=== PATIENT | male | born 1935 | race Caucasian/White ===

== ENCOUNTER 2018-12-12 09:25 | Observation (INO) | payer MEDICARE, BC ==
[2018-12-12] MEDS ORDERED: Sodium Chloride 0.9% 10 ML Syringe FLUSH PRN ×2 (09:35→11:02)
[2018-12-12] MEDS ORDERED: Aspirin 81 MG Tab.Chew PO ONE (09:55)
--- NOTE | 2018-12-12 10:11 | EDM.PDOC ---
ED HPI GENERAL MEDICAL PROBLEM - General Chief Complaint: Cardiovascular Problem Stated Complaint: Chest pain Time Seen by Provider: 12/12/18 09:56 Source of Information: Reports: Patient History Limitations: Reports: No Limitations - History of Present Illness INITIAL COMMENTS - FREE TEXT/NARRATIVE: 83 YO WM presents to ER complaining of chest pain which began 4 days ago. Pt reports pain woke him from sleep. Pt reports associated palpitations and lightheadedness. Pt woke this am with belching and chest pain prompting ER evaluation. Pt reports his pain has been constant and rates it between 2-4/10 in severity. Pt with some mild shortness of breath and fatigue. Pt denies any fever/chills, no nausea/vomiting. Onset Date: 12/09/18 Duration: Day(s): (4) Location: Reports: Chest Quality: Reports: Pressure Severity: Mild Improves with: Reports: None Worsens with: Reports: None Associated Symptoms: Reports: Chest Pain, Diaphoresis, Shortness of Breath, Weakness. Denies: Cough, Fever/Chills, Nausea/Vomiting, Syncope chest Pain Score (Numeric/FACES): 4 - Related Data Allergies Allergy/AdvReac Type Severity Reaction Status Date / Time No Known Allergies Allergy Verified 12/12/18 09:44 Home Meds: Home Meds Finasteride 5 mg PO DAILY 12/12/18 [History] Metoprolol Succinate/HCTZ [Metoprolol ER-Hctz 50-12.5 mg] 50 mg PO DAILY [History] Naproxen 500 mg PO DAILY 12/12/18 [History] Pantoprazole [ProTONIX] 20 mg PO DAILY 12/12/18 [History] Tamsulosin [Tamsulosin 24 Hr] 0.4 mg PO DAILY 12/12/18 [History] Terazosin [Hytrin] 2 mg PO DAILY 12/12/18 [History] amLODIPine [Norvasc] 5 mg PO DAILY 12/12/18 [History] ED ROS GENERAL - Review of Systems Review Of Systems: See Below Constitutional: Reports: No Symptoms HEENT: Reports: No Symptoms Respiratory: Reports: Shortness of Breath Cardiovascular: Reports: Chest Pain, Lightheadedness, Palpitations Endocrine: Reports: No Symptoms GI/Abdominal: Reports: No Symptoms : Reports: No Symptoms Musculoskeletal: Reports: No Symptoms Skin: Reports: No Symptoms Neurological: Reports: No Symptoms Psychiatric: Reports: No Symptoms Hematologic/Lymphatic: Reports: No Symptoms Immunologic: Reports: No Symptoms ED EXAM, GENERAL - Physical Exam Exam: See Below Exam Limited By: No Limitations General Appearance: Alert, WD/WN, No Apparent Distress Nose: Normal Inspection, Normal Mucosa, No Blood Throat/Mouth: Normal Inspection, Normal Lips, Normal Teeth, Normal Gums, Normal Oropharynx, Normal Voice, No Airway Compromise Head: Atraumatic, Normocephalic Neck: Normal Inspection, Supple, Non-Tender, Full Range of Motion Respiratory/Chest: No Respiratory Distress, Lungs Clear, Normal Breath Sounds, No Accessory Muscle Use, Chest Non-Tender Cardiovascular: Normal Peripheral Pulses, Regular Rate, Rhythm, No Edema, No Gallop, No JVD, No Murmur, No Rub GI/Abdominal: Normal Bowel Sounds, Soft, Non-Tender, No Organomegaly, No Distention, No Abnormal Bruit, No Mass Back Exam: Normal Inspection, Full Range of Motion, NT Extremities: Normal Inspection, Normal Range of Motion, Non-Tender, Normal Capillary Refill, No Pedal Edema Neurological: Alert, Oriented, CN II-XII Intact, Normal Cognition, Normal Gait, Normal Reflexes, No Motor/Sensory Deficits Psychiatric: Normal Affect, Normal Mood Skin Exam: Warm, Dry, Intact, Normal Color, No Rash Lymphatic: No Adenopathy EKG INTERPRETATION EKG Date: 12/12/18 Time: 09:52 Rhythm: NSR Rate (Beats/Min): 70 [place]: Normal P-Wave: Present QRS: Normal ST-T: Normal QT: Normal Comparison: NA - No Prior EKG Course - Vital Signs Last Recorded V/S: Last Vital Signs Temp 36.7 C 12/12/18 09:36 Pulse 76 12/12/18 09:36 Resp 16 12/12/18 09:36 BP 162/61 H 12/12/18 09:36 Pulse Ox 94 L 12/12/18 09:36 - Orders/Labs/Meds Orders: Active Orders 24 hr Category Date Time Status EKG Documentation Completion [RC] ASDIRECTED Care 12/12/18 09:35 Active Peripheral IV Care [RC] . DIRECTED Care 12/12/18 09:35 Active B-TYPE NATRIURETIC PEPTIDE,BNP [CHEM] Stat Lab 12/12/18 09:55 Ordered CK W CKMB [CHEM] Stat Lab 12/12/18 09:55 Ordered COMPREHENSIVE METABOLIC PN,CMP [CHEM] Stat Lab 12/12/18 09:55 Ordered INR,PT,PROTHROMBIN TIME [COAG] Stat Lab 12/12/18 09:55 Ordered PTT,PARTIAL THROMBOPLSTIN TIME [COAG] Stat Lab 12/12/18 09:55 Ordered TROPONIN I [CHEM] Stat Lab 12/12/18 09:55 Ordered Sodium Chloride 0.9% [Saline Flush] Med 12/12/18 09:35 Active 10 ml FLUSH Q8HR PRN Peripheral IV Insertion Adult [OM.PC] Routine Oth 12/12/18 09:35 Ordered Medication Orders Sodium Chloride (Saline Flush) 10 ml FLUSH Q8HR PRN PRN Reason: keep vein open Last Admin: 12/12/18 10:07 Dose: 10 ml Labs: Laboratory Tests 12/12/18 12/12/18 Range/Units 10:05 10:05 WBC 6.59 (5.00-10.00) 10^3/uL RBC 4.57 (4.50-6.00) 10^6/uL Hgb 13.8 (13.0-17.0) g/dL Hct 39.5 L (40.0-52.0) % MCV 86.4 (82.0-92.0) fL MCH 30.2 (27.0-31.0) pg MCHC 34.9 (32.0-36.0) g/dL RDW 12.2 (11.5-14.5) % Plt Count 194 (150-400) 10^3/uL MPV 9.1 (7.4-10.4) fL Immature Gran % (Auto) 0.8 (0.0-5.0) % Neut % (Auto) 60.3 (50.0-70.0) % Lymph % (Auto) 25.8 (20.0-40.0) % [place] % (Auto) 8.5 H (2.0-8.0) % Eos % (Auto) 4.1 H (1.0-3.0) % Baso % (Auto) 0.5 (0.0-1.0) % Immature Gran # (Auto) 0.05 (0.00-0.50) 10^3/uL Neut # (Auto) 3.98 (2.50-7.00) 10^3/uL Lymph # (Auto) 1.70 (1.00-4.00) 10^3/uL [place] # (Auto) 0.56 (0.10-0.80) 10^3/uL Eos # (Auto) 0.27 (0.10-0.30) 10^3/uL Baso # (Auto) 0.03 (0.00-0.10) 10^3/uL Sodium 148 H (136-145) mmol/L Potassium 3.7 (3.3-5.3) mmol/L Chloride 103 (98-115) mmol/L Carbon Dioxide 27.5 (21.0-32.0) mmol/L Anion Gap 21.2 H (5-15) mmol/L BUN 17 (6-25) mg/dL Creatinine 0.88 (0.51-1.17) mg/dL Est Cr Clr Drug Dosing 64.72 mL/min Estimated GFR (MDRD) > 60 mL/min Glucose 113 H (75 - 99) mg/dL Calcium 8.9 (8.7-10.3) mg/dL Total Bilirubin 0.4 (0.2-1.0) mg/dL AST 14 L (15-37) U/L ALT 22 (12-78) U/L Alkaline Phosphatase 96 (46-116) IU/L Creatine Kinase 57 (26-276) U/L CK-MB (CK-2) 0.60 (0.00-4.30) ng/mL Troponin I < 0.04 (0.00-0.070) ng/mL Total Protein 7.3 (6.4-8.2) g/dL Albumin 3.62 (3.00-4.80) g/dL Meds: Medications Generic Name Dose Route Start Last Admin Trade Name Freq PRN Reason Stop Dose Admin Sodium Chloride 10 ml 12/12/18 09:35 12/12/18 10:07 Saline Flush FLUSH 10 ml Q8HR PRN Administration keep vein open Discontinued Medications Generic Name Dose Route Start Last Admin Trade Name Freq PRN Reason Stop Dose Admin Aspirin 324 mg 12/12/18 09:55 12/12/18 10:08 Aspirin PO 12/12/18 09:56 324 mg ONETIME ONE Administration - Radiology Interpretation Free Text/Narrative:: CXR- NAD Departure - Departure Time of Disposition: 11:01 Disposition: Refer to Observation Condition: Fair Clinical Impression: Palpitations Chest pain Qualifiers: Chest pain type: unspecified Qualified Code(s): R07.9 - Chest pain, unspecified Referrals: PCP,Not In Area [Primary Care Provider] - Forms: ED Department Discharge - My Orders Last 24 Hours: My Active Orders 12/12/18 09:35 EKG Documentation Completion [RC] ASDIRECTED Peripheral IV Care [RC] . DIRECTED Sodium Chloride 0.9% [Saline Flush] 10 ml FLUSH Q8HR PRN Peripheral IV Insertion Adult [OM.PC] Routine 12/12/18 09:55 B-TYPE NATRIURETIC PEPTIDE,BNP [CHEM] Stat CK W CKMB [CHEM] Stat COMPREHENSIVE METABOLIC PN,CMP [CHEM] Stat INR,PT,PROTHROMBIN TIME [COAG] Stat PTT,PARTIAL THROMBOPLSTIN TIME [COAG] Stat TROPONIN I [CHEM] Stat - Assessment/Plan Last 24 Hours: My Active Orders 12/12/18 09:35 EKG Documentation Completion [RC] ASDIRECTED Peripheral IV Care [RC] . DIRECTED Sodium Chloride 0.9% [Saline Flush] 10 ml FLUSH Q8HR PRN Peripheral IV Insertion Adult [OM.PC] Routine 12/12/18 09:55 B-TYPE NATRIURETIC PEPTIDE,BNP [CHEM] Stat CK W CKMB [CHEM] Stat COMPREHENSIVE METABOLIC PN,CMP [CHEM] Stat INR,PT,PROTHROMBIN TIME [COAG] Stat PTT,PARTIAL THROMBOPLSTIN TIME [COAG] Stat TROPONIN I [CHEM] Stat Assessment:: 1. chest pain 2. palpitations Plan: 1. 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 trop I Q6 x 3 4. supportive care
--- NOTE | 2018-12-12 10:32 | CR ---
[id number] RAD/RAD Chest PA And Lateral EXAM: RAD Chest PA And Lateral INDICATION: CHEST PAIN. COMPARISON: None. DISCUSSION: Cardiomediastinal silhouette is normal in size and contour. No infiltrate, effusion, pneumothorax, or edema. IMPRESSION: Negative examination of the chest. Francis Sanchez MD 12/12/18 1030 Thank you for allowing us to participate in the care of your patient.
[2018-12-12 10:45] LABS: ANION GAP 21.2 mmol/L (5-15); CHLORIDE,CL 103 mmol/L (98-115); SODIUM,NA 148 mmol/L (136-145)
[2018-12-12] MEDS ORDERED: DIBUCAINE TP SCH (17:00)
[2018-12-12] MEDS ORDERED: EPINEPHrine 1:10,000 1 MG/10 ML Syringe IVPUSH PRN (20:21)
[2018-12-12] MEDS ORDERED: Nitroglycerin 0.4 MG Tab.SL SL PRN (20:21)
[2018-12-12] MEDS ORDERED: Atropine 0.1 MG/ML 10 ML Syringe IVPUSH PRN (20:21)
[2018-12-12] MEDS ORDERED: Lidocaine 2% 100 MG/5 ML Syringe IVPUSH PRN (20:21)
[2018-12-12] MEDS ORDERED: HYDROCORTISONE ACETATE 30 MG RC SCH (21:00)
[2018-12-13] MEDS: Pantoprazole 40 MG Tab.CR PO SCH ×2 (07:51→07:54)
[2018-12-13] MEDS ORDERED: Metoprolol Succinate 50 MG Tab.ER PO SCH (09:00)
[2018-12-13] MEDS ORDERED: Psyllium Husk Powder Sugar Free 5.85 GM Packet PO SCH (09:00)
[2018-12-13] MEDS ORDERED: Terazosin 1 MG Cap PO SCH (09:00)
[2018-12-13] MEDS ORDERED: Tamsulosin 0.4 MG Cap.ER PO SCH (09:00)
[2018-12-13] MEDS ORDERED: amLODIPine 5 MG Tab PO SCH (09:00)
[2018-12-13] MEDS ORDERED: Finasteride 5 MG Tab PO SCH (09:00)
--- NOTE | 2018-12-13 09:39 | PCM.DCSUM1 ---
Discharge Summary - Hospital Course Free Text/Narrative:: Asael is being discharged from an observation stay from 12/12/18 - 12/13/18. He was admitted with a 4 day hx of chest pain. His also states he was having a low grade fever and a "rattle" in his chest. He had been exposed to bronchitis. He also is complaining of left sided maxillary sinus pressure and left eye tearing as as post-nasal drip. He has not been taking anything for this. He tried Coricidan in the past and did not like how it made him feel and with his HTN he doesn't know what he can take. He also notes that he has had episodes of "fluttering" of his heart and then he feels weak when this happens. While here he had no problems on telemetry. Troponin was negative x 4 and EKG was NSR. He does not have nitroglycerin at home and so he will be discharged with that. I will also send through Augmentin for his sinusitis and possible bronchitis. He has taken this before without problems. I recommend with his cardiac hx of stenting x 3 that he have a cardiolyte stress test. They will check their schedule to see if it works to do it here or if they will follow-up with his PCP in [place]. I do recommend follow-up with his PCP to discuss his palpitations and possibly getting set up with a ZioPatch to look for rhythm abnormalities. Discharge Diagnosis: Chest pain, r/o cardiac, negative work-up. --Script for nitroglycerin will be sent to the [facility] in [place]. --Schedule outpatient cardiolyte stress cirilo. --Follow-up with PCP to consider wearing Ziopatch. Acute sinusitis. --Start Augmentin 1 tab PO BID x 10 days. Will be sent through clinic chart to the [facility] pharmacy in [place]. Secondary: HTN --Continue home meds at current doses. BPH --Continue home meds at current doses. Acid Reflux --Continue home meds at current doses. Diagnosis: Stroke: No Modified [place] Scale: No Signif.Disability Despite Sympt.Able to Carry Out Usual Act./Duties Modified Lizy Scale Score: 1 - Discharge Data Discharge Date: 12/13/18 Discharge Disposition: Home, Self-Care 01 Condition: Good - Discharge Diagnosis/Problem(s) (1) Sinusitis SNOMED Code(s): 59461150 ICD Code: J32.9 - CHRONIC SINUSITIS, UNSPECIFIED Status: Acute Current Visit: Yes (2) Hypertension SNOMED Code(s): 07267096 ICD Code: I10 - ESSENTIAL (PRIMARY) HYPERTENSION Status: Acute Current Visit: Yes (3) BPH (benign prostatic hyperplasia) SNOMED Code(s): 169046532 ICD Code: N40.0 - BENIGN PROSTATIC HYPERPLASIA WITHOUT LOWER URINRY TRACT SYMP Status: Acute Current Visit: Yes (4) Chest pain SNOMED Code(s): 78301405 ICD Code: R07.9 - CHEST PAIN, UNSPECIFIED Status: Acute Current Visit: Yes Qualifiers: Chest pain type: unspecified Qualified Code(s): R07.9 - Chest pain, unspecified (5) Palpitations SNOMED Code(s): 41851281 ICD Code: R00.2 - PALPITATIONS Status: Acute Current Visit: Yes - Patient Summary/Data Recommended Follow-up Testing/Procedures: Cardiolyte Stress Test - Patient Instructions Diet: Heart Healthy Diet Activity: As Tolerated - Discharge Plan *PRESCRIPTION DRUG MONITORING PROGRAM REVIEWED*: Not Applicable *COPY OF PRESCRIPTION DRUG MONITORING REPORT IN PATIENT MAGUI: Not Applicable Home Medications: Home Meds Finasteride 5 mg PO DAILY 12/12/18 [History] Metoprolol Succinate 50 mg PO DAILY 12/12/18 [History] Naproxen 500 mg PO DAILY 12/12/18 [History] Pantoprazole [ProTONIX] 40 mg PO ACBREAKFAST 12/12/18 [History] Psyllium Husk/Aspartame [Metamucil Fiber Singles Packet] 3.4 gm PO DAILY [History] Tamsulosin HCl [Flomax] 0.4 mg PO DAILY 12/12/18 [History] Terazosin [Hytrin] 2 mg PO DAILY 12/12/18 [History] amLODIPine Besylate [Amlodipine Besylate] 10 mg PO DAILY 12/12/18 [History] Nitroglycerin [Nitrostat] 0.4 mg SL ASDIRECTED PRN tab.sl 12/13/18 [Rx] Forms: ED Department Discharge Referrals: PCP,Not In Area [Primary Care Provider] - - Discharge Summary/Plan Comment DC Time >30 min.: Yes Discharge Summary/Plan Comment: 35 minute spent on discharge. - General Info Date of Service: 12/13/18 Admission Dx/Problem (Free Text: Chest pain. - Review of Systems Systems Review Comment: Left sided maxillary sinus pressure with left eye tearing. "Rattle" in the chest occasionally. Low grade fevers (99.5 at home). All other systems are negative. - Patient Data Vitals - Most Recent: Last Vital Signs Temp 98.5 F 12/13/18 07:00 Pulse 66 12/13/18 07:00 Resp 20 12/13/18 07:00 BP 168/90 H 12/13/18 07:00 Pulse Ox 94 L 12/13/18 07:00 Weight - Most Recent: 222 lb I&O - Last 24 hours: Intake & Output 12/12/18 12/13/18 12/13/18 22:59 06:59 14:59 Intake Total 300 200 Balance 300 200 Lab Results - Last 24 hrs: Laboratory Results - last 24 hr 12/12/18 12/12/18 12/12/18 Range/Units 10:00 10:05 10:05 WBC 6.59 (5.00-10.00) 10^3/uL RBC 4.57 (4.50-6.00) 10^6/uL Hgb 13.8 (13.0-17.0) g/dL Hct 39.5 L (40.0-52.0) % MCV 86.4 (82.0-92.0) fL MCH 30.2 (27.0-31.0) pg MCHC 34.9 (32.0-36.0) g/dL RDW 12.2 (11.5-14.5) % Plt Count 194 (150-400) 10^3/uL MPV 9.1 (7.4-10.4) fL Immature Gran % (Auto) 0.8 (0.0-5.0) % Neut % (Auto) 60.3 (50.0-70.0) % Lymph % (Auto) 25.8 (20.0-40.0) % [place] % (Auto) 8.5 H (2.0-8.0) % Eos % (Auto) 4.1 H (1.0-3.0) % Baso % (Auto) 0.5 (0.0-1.0) % Immature Gran # (Auto) 0.05 (0.00-0.50) 10^3/uL Neut # (Auto) 3.98 (2.50-7.00) 10^3/uL Lymph # (Auto) 1.70 (1.00-4.00) 10^3/uL [place] # (Auto) 0.56 (0.10-0.80) 10^3/uL Eos # (Auto) 0.27 (0.10-0.30) 10^3/uL Baso # (Auto) 0.03 (0.00-0.10) 10^3/uL PT 9.3 (8.9-11.4) SEC INR 0.9 (0.9-1.1) APTT 23.6 (20.8-31.2) SEC Sodium 148 H (136-145) mmol/L Potassium 3.7 (3.3-5.3) mmol/L Chloride 103 (98-115) mmol/L Carbon Dioxide 27.5 (21.0-32.0) mmol/L Anion Gap 21.2 H (5-15) mmol/L BUN 17 (6-25) mg/dL Creatinine 0.88 (0.51-1.17) mg/dL Est Cr Clr Drug Dosing 64.72 mL/min Estimated GFR (MDRD) > 60 mL/min Glucose 113 H (75 - 99) mg/dL Calcium 8.9 (8.7-10.3) mg/dL Total Bilirubin 0.4 (0.2-1.0) mg/dL AST 14 L (15-37) U/L ALT 22 (12-78) U/L Alkaline Phosphatase 96 (46-116) IU/L Creatine Kinase 57 (26-276) U/L CK-MB (CK-2) 0.60 (0.00-4.30) ng/mL Troponin I < 0.04 (0.00-0.070) ng/mL B-Natriuretic Peptide 32 (0-100) pg/mL Total Protein 7.3 (6.4-8.2) g/dL Albumin 3.62 (3.00-4.80) g/dL 12/12/18 12/12/18 12/13/18 Range/Units 16:15 22:03 07:05 WBC (5.00-10.00) 10^3/uL RBC (4.50-6.00) 10^6/uL Hgb (13.0-17.0) g/dL Hct (40.0-52.0) % MCV (82.0-92.0) fL MCH (27.0-31.0) pg MCHC (32.0-36.0) g/dL RDW (11.5-14.5) % Plt Count (150-400) 10^3/uL MPV (7.4-10.4) fL Immature Gran % (Auto) (0.0-5.0) % Neut % (Auto) (50.0-70.0) % Lymph % (Auto) (20.0-40.0) % [place] % (Auto) (2.0-8.0) % Eos % (Auto) (1.0-3.0) % Baso % (Auto) (0.0-1.0) % Immature Gran # (Auto) (0.00-0.50) 10^3/uL Neut # (Auto) (2.50-7.00) 10^3/uL Lymph # (Auto) (1.00-4.00) 10^3/uL [place] # (Auto) (0.10-0.80) 10^3/uL Eos # (Auto) (0.10-0.30) 10^3/uL Baso # (Auto) (0.00-0.10) 10^3/uL PT (8.9-11.4) SEC INR (0.9-1.1) APTT (20.8-31.2) SEC Sodium (136-145) mmol/L Potassium (3.3-5.3) mmol/L Chloride (98-115) mmol/L Carbon Dioxide (21.0-32.0) mmol/L Anion Gap (5-15) mmol/L BUN (6-25) mg/dL Creatinine (0.51-1.17) mg/dL Est Cr Clr Drug Dosing mL/min Estimated GFR (MDRD) mL/min Glucose (75 - 99) mg/dL Calcium (8.7-10.3) mg/dL Total Bilirubin (0.2-1.0) mg/dL AST (15-37) U/L ALT (12-78) U/L Alkaline Phosphatase (46-116) IU/L Creatine Kinase (26-276) U/L CK-MB (CK-2) (0.00-4.30) ng/mL Troponin I < 0.04 < 0.04 < 0.04 (0.00-0.070) ng/mL B-Natriuretic Peptide (0-100) pg/mL Total Protein (6.4-8.2) g/dL Albumin (3.00-4.80) g/dL PEDRO Results - Last 24 hrs: Microbiology 12/12/18 19:45 Influenza Type A Antigen Screen - Final Nasopharyngeal Swab NEGATIVE INFLUENZA A VIRUS AG Influenza Type B Antigen Screen - Final NEGATIVE INFLUENZA B VIRUS AG Med Orders - Current: Current Medications Amlodipine Besylate (Norvasc) 10 mg PO DAILY [facility] Last Admin: 12/13/18 09:04 Dose: Not Given Atropine Sulfate (Atropine 0.1 Mg/Ml) 0 mg IVPUSH ASDIRECTED PRN PRN Reason: Heart Epinephrine HCl (Epinephrine 1:10,000) 1 mg IVPUSH ASDIRECTED PRN PRN Reason: Heart Finasteride (Proscar) 5 mg PO DAILY [facility] Last Admin: 12/13/18 09:05 Dose: Not Given Lidocaine HCl (Xylocaine 2%) 0 mg IVPUSH ASDIRECTED PRN PRN Reason: Heart Metoprolol Succinate (Toprol Xl) 50 mg PO DAILY [facility] Last Admin: 12/13/18 09:05 Dose: Not Given Naproxen (Naproxen Sodium) 440 mg PO DAILY [facility] Last Admin: 12/13/18 09:04 Dose: Not Given Nitroglycerin (Nitrostat) 0.4 mg SL ASDIRECTED PRN PRN Reason: Heart Non-Formulary Medication (Dibucaine [Nupercainal 1% Oint]) 30 gm TP QID [facility] Non-Formulary Medication (Hydrocortisone Acetate [Hydrocortisone Acetate]) 30 mg RC BID [facility] Pantoprazole Sodium (Protonix) 40 mg PO ACBREAKFAST [facility] Last Admin: 12/13/18 07:54 Dose: Not Given Psyllium Husk (Metamucil Sugar Free) 1 pkt PO DAILY [facility] Last Admin: 12/13/18 09:04 Dose: Not Given Sodium Chloride (Saline Flush) 10 ml FLUSH Q8HR PRN PRN Reason: keep vein open Tamsulosin HCl (Flomax) 0.4 mg PO DAILY [facility] Last Admin: 12/13/18 09:04 Dose: Not Given Terazosin HCl (Hytrin) 2 mg PO DAILY [facility] Last Admin: 12/13/18 09:04 Dose: Not Given Discontinued Medications Aspirin (Aspirin) 324 mg PO ONETIME ONE Stop: 12/12/18 09:56 Last Admin: 12/12/18 10:08 Dose: 324 mg Sodium Chloride (Saline Flush) 10 ml FLUSH Q8HR PRN PRN Reason: keep vein open Last Admin: 12/12/18 10:07 Dose: 10 ml - Exam General: Reports: Alert, Oriented, Cooperative, No Acute Distress HEENT: Reports: Other (Tenderness with palpation over the left maxillary sinus.) Neck: Reports: Supple Lungs: Reports: Clear to Auscultation, Normal Respiratory Effort Cardiovascular: Reports: Regular Rate, Regular Rhythm, No Murmurs GI/Abdominal Exam: Normal Bowel Sounds Extremities: Normal Inspection, No Pedal Edema Skin: Reports: Warm, Dry, Intact
== END 2018-12-13 10:40 | disposition home or self-care (01) ==
LOC: KA.ED 09:25 → KA.MS 11:02 → UNDODISOB 11:50
PROVIDERS: ADMIT Physician Assistant Medical; ATTEND Internal Medicine
DX: R07.89 Other chest pain (principal); R00.2 Palpitations; J01.90 Acute sinusitis, unspecified; I10 Essential (primary) hypertension; N40.0 Benign prostatic hyperplasia without lower urinary tract symptoms; K21.9 Gastro-esophageal reflux disease without esophagitis; Z95.5 Presence of coronary angioplasty implant and graft; Z79.1 Long term (current) use of non-steroidal anti-inflammatories (NSAID); Z79.899 Other long term (current) drug therapy
CPT/HCPCS: 36415; 71046; 80053; 82550; 82553; 83880; 84484; 85025; 85610; 85730; 87804; 93005; 99285; A9270-GY; G0378

== ENCOUNTER 2023-01-29 01:27 | Emergency (ER) | payer MEDICARE, BC ==
[2023-01-29] MEDS: Ketorolac 30 MG/ML SDV IVPUSH ONE (02:16)
[2023-01-29] MEDS: LORazepam 2 MG/ML SDV IVPUSH ONE (02:17)
[2023-01-29] MEDS: Sodium Chloride 0.9% 10 ML Syringe FLUSH PRN (02:23)
[2023-01-29] MEDS: Acetaminophen/HYDROcodone 325-5 MG Tab PO ONE (02:43)
== END 2023-01-29 03:30 | disposition home or self-care (01) ==
LOC: KA.ED 01:27
DX: M54.41 Lumbago with sciatica, right side (principal); I10 Essential (primary) hypertension; K21.9 Gastro-esophageal reflux disease without esophagitis; N40.0 Benign prostatic hyperplasia without lower urinary tract symptoms; E66.9 Obesity, unspecified; Z68.33 Body mass index [BMI] 33.0-33.9, adult; Z88.8 Allergy status to other drugs, medicaments and biological substances; Z79.899 Other long term (current) drug therapy
CPT/HCPCS: 96374; 96375; 99283; 99283-25; A9270-GY; J1885; J2060; J3490

== ENCOUNTER 2024-02-23 01:50 | Inpatient (IN) | payer MEDICARE, OTHER ==
[2024-02-23 02:26] LABS: BASOPHILS ABSOLUTE AUTO 0.02 10^3/uL (0.00-0.10); BASOPHILS PERCENT AUTO 0.2 % (0.0-1.0); EOSINOPHILS ABSOLUTE AUTO 0.07 10^3/uL (0.10-0.30); EOSINOPHILS PERCENT AUTO 0.7 % (1.0-3.0); HEMATOCRIT 40.4 % (40.0-52.0); IMMATURE GRAN ABSOLUTE AUTO 0.01 10^3/uL (0.00-0.50); IMMATURE GRAN PERCENT AUTO 0.1 % (0.0-5.0); LYMPHOCYTES ABSOLUTE AUTO 0.64 10^3/uL (1.00-4.00); LYMPHOCYTES PERCENT AUTO 6.3 % (20.0-40.0); MEAN CORPUSCULAR HEMOGLOBIN 30.3 pg (27.0-31.0); MEAN CORPUSCULAR HGB CONC 34.7 g/dL (32.0-36.0); MEAN CORPUSCULAR VOLUME 87.4 fL (82.0-92.0); MEAN PLATELET VOLUME 9.1 fL (7.4-10.4); NEUTROPHILS ABSOLUTE AUTO 8.95 10^3/uL (2.50-7.00); NEUTROPHILS PERCENT AUTO 88.7 % (50.0-70.0); PLATELET COUNT,PLT 200 10^3/uL (150-400); RED BLOOD CELL COUNT 4.62 10^6/uL (4.50-6.00); RED CELL DISTRIBUTION WIDTH 12.4 % (11.5-14.5); WHITE BLOOD CELL COUNT,WBC 10.09 10^3/uL (5.00-10.00)
[2024-02-23] MEDS: Ondansetron 4 MG/2 ML SDV IVPUSH ONE ×2 (02:32→02:41)
[2024-02-23 02:47] LABS: ALBUMIN 3.44 g/dL (3.40-5.00); ANION GAP 16.7 mmol/L (5-15); BILIRUBIN TOTAL 0.7 mg/dL (0.2-1.0); CALCIUM 8.2 mg/dL (8.7-10.3); CARBON DIOXIDE,CO2 26.3 mmol/L (21.0-32.0); CREATININE 1.03 mg/dL (0.51-1.17); EST CRCL DRUG DOSING (CG) 50.53 mL/min; PROTEIN TOTAL,TP 7.2 g/dL (6.4-8.2)
[2024-02-23] MEDS: Sodium Chloride 0.9% 1,000 ML IV ONE (02:49)
[2024-02-23 03:00] LABS: INFLUENZA A NAA NEGATIVE (NEGATIVE); INFLUENZA B NAA NEGATIVE (NEGATIVE); RESPIRATORY SYNCYTIAL VIR NAA NEGATIVE (NEGATIVE)
[2024-02-23 03:07] LABS: CORONAVIRUS COVID-19 NAA NEGATIVE (NEGATIVE)
[2024-02-23] MEDS: Albuterol/Ipratropium 3.0-0.5 MG/3 ML Neb Soln NEB ONE (03:19)
[2024-02-23] MEDS: Acetaminophen 500 MG Tab PO ONE (04:16)
[2024-02-23] MEDS: Iopamidol 755 Mg/ML 100 ML Bottle IV ONE ×2 (04:58→17:28)
[2024-02-23] MEDS: Sodium Chloride 0.9% 100 ML IV SCH (04:58)
[2024-02-23] MEDS ORDERED: Albuterol/Ipratropium 3.0-0.5 MG/3 ML Neb Soln NEB PRN (05:50)
[2024-02-23] MEDS ORDERED: Acetaminophen 325 MG Tab PO PRN (05:50)
[2024-02-23] MEDS ORDERED: Triamcinolone Acetonide 0.1% Crm 15 GM Tube TOP PRN (05:55)
[2024-02-23] MEDS: Pantoprazole 40 MG Tab.CR PO SCH (06:18)
[2024-02-23] MEDS: Ondansetron 4 MG/2 ML SDV IV PRN (06:18)
[2024-02-23] MEDS ORDERED: Non-Formulary Medication 1 Each (Clobetasol [Clobetasol 0.05%] 30 GM Tube) TOP SCH (09:00)
[2024-02-23] MEDS ORDERED: Psyllium Husk Powder Sugar Free 5.85 GM Packet PO SCH (09:00)
[2024-02-23] MEDS ORDERED: Polyethylene Glycol 3350 Powder 17 GM Packet PO SCH (09:00)
[2024-02-23] MEDS: Propranolol 20 MG Tab PO SCH (10:50)
[2024-02-23] MEDS: amLODIPine 5 MG Tab PO SCH (10:50)
[2024-02-23] MEDS: Cyanocobalamin (Vitamin B12) 500 MCG Tab PO SCH (10:52)
[2024-02-23] MEDS: Finasteride 5 MG Tab PO SCH (10:53)
[2024-02-23] MEDS: atorvaSTATin 10 MG Tab PO SCH (10:53)
[2024-02-23] MEDS: Tamsulosin 0.4 MG Cap.ER PO SCH (10:53)
[2024-02-23] MEDS: Celecoxib 100 MG Cap PO SCH (10:53)
[2024-02-23] MEDS: Terazosin 1 MG Cap PO SCH (10:53)
[2024-02-23] MEDS: Enoxaparin 40 MG/0.4 ML Syringe SUBCUT SCH (10:54)
[2024-02-23] MEDS: NS + KCl 20mEq/L 1,000 ML IV SCH (13:39)
[2024-02-23] MEDS: Loperamide 2 MG Cap PO PRN (13:39)
[2024-02-23] MEDS ORDERED: Morphine 2 MG/ML SYRINGE IVPUSH PRN (16:58)
[2024-02-23] MEDS: LORazepam 2 MG/ML SDV IVPUSH PRN (17:02)
[2024-02-23] MEDS: Levofloxacin/Dextrose 5%-Water 500 MG in Premix Bag 1 BAG IV SCH (17:26)
[2024-02-23] MEDS: Sodium Chloride 0.9% 50 ML IV SCH (17:28)
[2024-02-23] MEDS: Sodium Chloride 0.9% 500 ML IV ONE ×2 (18:32→18:34)
[2024-02-23] MEDS: Piperacillin/Tazobactam 4.5 GM in Sodium Chloride 0.9% 100 ML IV ONE (22:24)
[2024-02-23] MEDS: Sodium Chloride 0.9% 250 ML IV SCH (23:10)
[2024-02-23] MEDS: Sodium Chloride 0.9% 250 ML ONE (23:11)
[2024-02-24] MEDS: Piperacillin/Tazobactam 4.5 GM in Sodium Chloride 0.9% 100 ML IV SCH (01:51)
[2024-02-24 07:27] LABS: BASOPHILS ABSOLUTE AUTO 0.01 10^3/uL (0.00-0.10); BASOPHILS PERCENT AUTO 0.1 % (0.0-1.0); HEMATOCRIT 35.5 % (40.0-52.0); HEMOGLOBIN 11.7 g/dL (13.0-17.0); IMMATURE GRAN ABSOLUTE AUTO 0.01 10^3/uL (0.00-0.50); IMMATURE GRAN PERCENT AUTO 0.1 % (0.0-5.0); LYMPHOCYTES ABSOLUTE AUTO 1.51 10^3/uL (1.00-4.00); LYMPHOCYTES PERCENT AUTO 17.5 % (20.0-40.0); MEAN CORPUSCULAR HEMOGLOBIN 29.5 pg (27.0-31.0); MEAN CORPUSCULAR VOLUME 89.4 fL (82.0-92.0); MEAN PLATELET VOLUME 8.7 fL (7.4-10.4); MONOCYTES ABSOLUTE AUTO 1.21 10^3/uL (0.10-0.80); MONOCYTES PERCENT AUTO 14.1 % (2.0-8.0); NEUTROPHILS ABSOLUTE AUTO 5.87 10^3/uL (2.50-7.00); NEUTROPHILS PERCENT AUTO 68.2 % (50.0-70.0); PLATELET COUNT,PLT 160 10^3/uL (150-400); RED BLOOD CELL COUNT 3.97 10^6/uL (4.50-6.00); RED CELL DISTRIBUTION WIDTH 13.1 % (11.5-14.5); WHITE BLOOD CELL COUNT,WBC 8.61 10^3/uL (5.00-10.00)
[2024-02-24 07:29] LABS: ANION GAP 15.5 mmol/L (5-15); CALCIUM 7.1 mg/dL (8.7-10.3); CARBON DIOXIDE,CO2 24.8 mmol/L (21.0-32.0); CREATININE 1.22 mg/dL (0.51-1.17); EST CRCL DRUG DOSING (CG) 42.66 mL/min; POTASSIUM,K 3.3 mmol/L (3.5-5.1)
[2024-02-24 14:56] LABS: BASOPHILS ABSOLUTE AUTO 0.01 10^3/uL (0.00-0.10); BASOPHILS PERCENT AUTO 0.1 % (0.0-1.0); EOSINOPHILS ABSOLUTE AUTO 0.03 10^3/uL (0.10-0.30); EOSINOPHILS PERCENT AUTO 0.4 % (1.0-3.0); HEMATOCRIT 33.4 % (40.0-52.0); HEMOGLOBIN 11.4 g/dL (13.0-17.0); IMMATURE GRAN ABSOLUTE AUTO 0.01 10^3/uL (0.00-0.50); IMMATURE GRAN PERCENT AUTO 0.1 % (0.0-5.0); LYMPHOCYTES ABSOLUTE AUTO 1.96 10^3/uL (1.00-4.00); LYMPHOCYTES PERCENT AUTO 26.7 % (20.0-40.0); MEAN CORPUSCULAR HEMOGLOBIN 30.3 pg (27.0-31.0); MEAN CORPUSCULAR HGB CONC 34.1 g/dL (32.0-36.0); MEAN CORPUSCULAR VOLUME 88.8 fL (82.0-92.0); MEAN PLATELET VOLUME 8.6 fL (7.4-10.4); MONOCYTES PERCENT AUTO 12.2 % (2.0-8.0); NEUTROPHILS ABSOLUTE AUTO 4.44 10^3/uL (2.50-7.00); NEUTROPHILS PERCENT AUTO 60.5 % (50.0-70.0); PLATELET COUNT,PLT 146 10^3/uL (150-400); RED BLOOD CELL COUNT 3.76 10^6/uL (4.50-6.00); WHITE BLOOD CELL COUNT,WBC 7.35 10^3/uL (5.00-10.00)
[2024-02-24 15:11] LABS: ALBUMIN 2.45 g/dL (3.40-5.00); ANION GAP 14.6 mmol/L (5-15); BILIRUBIN TOTAL 0.7 mg/dL (0.2-1.0); CALCIUM 7.3 mg/dL (8.7-10.3); CARBON DIOXIDE,CO2 24.9 mmol/L (21.0-32.0); CREATININE 1.17 mg/dL (0.51-1.17); EST CRCL DRUG DOSING (CG) 44.48 mL/min; POTASSIUM,K 3.5 mmol/L (3.5-5.1); PROTEIN TOTAL,TP 5.7 g/dL (6.4-8.2)
[2024-02-25] MEDS: Omeprazole 20 MG Cap.CR PO SCH (07:09)
[2024-02-25 07:20] LABS: HEMATOCRIT 32.5 % (40.0-52.0); MEAN CORPUSCULAR HEMOGLOBIN 29.6 pg (27.0-31.0); MEAN CORPUSCULAR HGB CONC 33.8 g/dL (32.0-36.0); MEAN CORPUSCULAR VOLUME 87.6 fL (82.0-92.0); MEAN PLATELET VOLUME 8.7 fL (7.4-10.4); PLATELET COUNT,PLT 140 10^3/uL (150-400); RED BLOOD CELL COUNT 3.71 10^6/uL (4.50-6.00); RED CELL DISTRIBUTION WIDTH 12.8 % (11.5-14.5); WHITE BLOOD CELL COUNT,WBC 5.68 10^3/uL (5.00-10.00)
[2024-02-25 07:35] LABS: ALBUMIN 2.34 g/dL (3.40-5.00); ANION GAP 11.1 mmol/L (5-15); BILIRUBIN TOTAL 0.6 mg/dL (0.2-1.0); CALCIUM 7.3 mg/dL (8.7-10.3); CARBON DIOXIDE,CO2 26.4 mmol/L (21.0-32.0); CREATININE 1.05 mg/dL (0.51-1.17); EST CRCL DRUG DOSING (CG) 49.56 mL/min; POTASSIUM,K 3.5 mmol/L (3.5-5.1); PROTEIN TOTAL,TP 5.3 g/dL (6.4-8.2)
[2024-02-25 11:43] LABS: ALBUMIN 2.7 g/dL (3.40-5.00); ANION GAP 12.3 mmol/L (5-15); BILIRUBIN TOTAL 0.6 mg/dL (0.2-1.0); CALCIUM 7.8 mg/dL (8.7-10.3); CARBON DIOXIDE,CO2 26.4 mmol/L (21.0-32.0); CREATININE 1.02 mg/dL (0.51-1.17); EST CRCL DRUG DOSING (CG) 51.02 mL/min; POTASSIUM,K 3.7 mmol/L (3.5-5.1); PROTEIN TOTAL,TP 6.3 g/dL (6.4-8.2)
[2024-02-25 13:48] LABS: BASOPHILS ABSOLUTE AUTO 0.02 10^3/uL (0.00-0.10); BASOPHILS PERCENT AUTO 0.3 % (0.0-1.0); EOSINOPHILS ABSOLUTE AUTO 0.14 10^3/uL (0.10-0.30); EOSINOPHILS PERCENT AUTO 2.3 % (1.0-3.0); IMMATURE GRAN ABSOLUTE AUTO 0.02 10^3/uL (0.00-0.50); IMMATURE GRAN PERCENT AUTO 0.3 % (0.0-5.0); LYMPHOCYTES PERCENT AUTO 26.7 % (20.0-40.0); MONOCYTES ABSOLUTE AUTO 0.82 10^3/uL (0.10-0.80); MONOCYTES PERCENT AUTO 13.7 % (2.0-8.0); NEUTROPHILS ABSOLUTE AUTO 3.39 10^3/uL (2.50-7.00); NEUTROPHILS PERCENT AUTO 56.7 % (50.0-70.0)
== END 2024-02-26 13:05 | disposition home or self-care (01) | DRG 189 ==
LOC: KA.ED 01:50 → KA.MS 04:08
PROVIDERS: ADMIT Internal Medicine; ATTEND Internal Medicine
DX: J96.01 Acute respiratory failure with hypoxia (principal); A08.11 Acute gastroenteropathy due to Norwalk agent; N17.9 Acute kidney failure, unspecified; Z68.34 Body mass index [BMI] 34.0-34.9, adult; I10 Essential (primary) hypertension; E78.5 Hyperlipidemia, unspecified; N40.0 Benign prostatic hyperplasia without lower urinary tract symptoms; G47.33 Obstructive sleep apnea (adult) (pediatric); E66.9 Obesity, unspecified; F41.9 Anxiety disorder, unspecified; K21.9 Gastro-esophageal reflux disease without esophagitis; K59.09 Other constipation; Z95.5 Presence of coronary angioplasty implant and graft; Z88.8 Allergy status to other drugs, medicaments and biological substances; Z98.49 Cataract extraction status, unspecified eye; Z90.49 Acquired absence of other specified parts of digestive tract; Z99.81 Dependence on supplemental oxygen; Z98.890 Other specified postprocedural states; Z79.899 Other long term (current) drug therapy
CPT/HCPCS: 0241U; 36415; 71046; 71275; 74021; 74177; 80048; 80053; 82947; 83605; 84484; 85025; 87040; 87045; 87046; 87324; 87449; 87505; 94640; 96361; 96374; 99223-GT; 99232-GT; 99233-GT; 99239-GT; 99285-25; A9270-GY; J1650; J1956; J2060; J2405; J2543; J3480; J3490; J7030; J7040; J7050; J7620-GY; Q3014; Q9967

== ENCOUNTER 2024-05-26 12:14 | Emergency (ER) | payer MEDICARE, OTHER ==
[2024-05-26] MEDS: Bacitracin/Neomycin/Polymyxin B Oint 0.9 GM U/D Packet TOP ONE (12:48)
== END 2024-05-26 14:05 | disposition home or self-care (01) ==
LOC: KA.ED 12:14
DX: S00.03XA Contusion of scalp, initial encounter (principal); S00.81XA Abrasion of other part of head, initial encounter; I10 Essential (primary) hypertension; K21.9 Gastro-esophageal reflux disease without esophagitis; E66.9 Obesity, unspecified; Z90.49 Acquired absence of other specified parts of digestive tract; Z68.33 Body mass index [BMI] 33.0-33.9, adult; Z79.899 Other long term (current) drug therapy; Z88.8 Allergy status to other drugs, medicaments and biological substances; W22.8XXA Striking against or struck by other objects, initial encounter
CPT/HCPCS: 70450; 99283